=== PATIENT | male | born 1960 | race Caucasian/White ===

== ENCOUNTER 2017-04-25 16:54 | Emergency (ER) | payer BC, OTHER ==
--- NOTE | 2017-04-25 17:30 | UC ---
Knee Pain HPI - HPI Summary HPI Summary: 56 male presents with complaints of left knee pain and clicking that began on after an injury while at work. States he was coming down a ladder on a piece of equipment when he slipped and landed on uneven pavement. States his knee hyper extended and twisted. Patient states since he has had pain when walking or bearing weight for long periods of time and also feels/hears clicking when twisting or sudden movement. Patient has not taken any medications. Denies any other injuries, did not hit his head. Denies numbness tingling. Has full ROM. Denies PMHx. - History of Current Complaint Chief Complaint: UCLowerExtremity Stated Complaint: LEFT KNEE INJURY (WC) Time Seen by Provider: 04/25/17 17:26 Hx Obtained From: Patient Onset/Duration: Sudden Onset, Lasting Weeks, Still Present, Worse Since Severity Initially: Mild Severity Currently: Moderate Location Of Injury: left knee Pain Intensity: 4 - 8/10 when at worst Pain Scale Used: 0-10 Numeric Character: Aching Aggravating Factor(s): Movement, Weight Bearing - walking down a hill, Prolonged Standing Alleviating Factor(s): Rest, Position Associated Signs And Symptoms: Positive: Negative Able to Bear Weight: Yes - Allergies/Home Medications Allergies/Adverse Reactions: Allergies Allergy/AdvReac Type Severity Reaction Status Date / Time No Known Allergies Allergy Verified 04/25/17 17:22 Home Medications: Home Medications Allergy Medication 1 tab DAILY PRN 04/25/17 [History Confirmed 04/25/17] Pravastatin (NF) [Pravachol (NF)] 10 mg PO BEDTIME 04/25/17 [History Confirmed 04/25/17] PMH/Surg Hx/FS Hx/Imm Hx - Additional Past Medical History Additional PMH: Denies diabetes, HTN and asthma. Denies PMHx. - Surgical History Surgical History: Yes Surgery Procedure, Year, and Place: Tumor left ankle-benign - Family History Known Family History: Positive: None - Social History Alcohol Use: Daily Alcohol Amount: 3 cans a day Substance Use Type: None Smoking Status (MU): Never Smoked Tobacco Review of Systems Constitutional: Negative Skin: Negative Respiratory: Negative Cardiovascular: Negative Motor: Negative Musculoskeletal: Arthralgia, Myalgia - left knee Neurological: Negative All Other Systems Reviewed And Are Negative: Yes Physical Exam Triage Information Reviewed: Yes Appearance: Well-Appearing, No Pain Distress, Well-Nourished Vital Signs: Initial Vital Signs Temp 99.1 F 04/25/17 17:08 Pulse 66 04/25/17 17:08 Resp 16 04/25/17 17:08 BP 133/90 04/25/17 17:08 Pulse Ox 96 04/25/17 17:08 Vital Signs Reviewed: Yes Eyes: Positive: Conjunctiva Clear Neck: Positive: Supple, Nontender Respiratory: Positive: Chest non-tender, Lungs clear, Normal breath sounds, No respiratory distress, No accessory muscle use Cardiovascular: Positive: RRR, No Murmur, Pulses Normal - 2+ upper and lower extremities b/l Musculoskeletal: Positive: Strength Intact, ROM Intact, No Edema, Other: - no pain on palpation Neurological: Positive: Alert - sensation intact and equal b/l, Muscle Tone Normal, Fatigued Psychological Exam: Normal Skin Exam: Normal Skin: Positive: Other - no ecchymosis, edema, crepitus, step off or obvious deformity noted. Diagnostics - Radiology left knee Xray Interpretation: No Acute Changes - MINOR PATELLOFEMORAL OSTEOARTHRITIS. Radiology Interpretation Completed By: Radiologist Knee Pain Course/Dx - Course Course Of Treatment: x-ray obtained and negative for acute changes/injury. advised to take NSAIDs, rest, ice and refrain from strenuous physical activity. Follow up with PCP or ortho for further imaging and evaluation, MRI needed if symptoms persis/continue. OTC knee brace for extra support. Aware of worsening signs and symptoms. - Differential Dx/Diagnosis Differential Diagnosis/HQI/PQRI: Contusion, Dislocation, Fracture (Closed), Sprain, Strain, Tendonitis, Other Provider Diagnoses: left knee pain, injury Discharge - Discharge Plan Condition: Stable Disposition: HOME Patient Education Materials: Knee Pain (ED) Referrals: No Primary Care Phys,NOPCP [Primary Care Provider] - Gabino Jay MD [Medical Doctor] - Additional Instructions: Take NSAIDs such as ibuprofen or aleve for pain as needed. Take with food. Follow up and make an appointment with PCP or orthopedics for further imaging/ work up and imaging. Ice/Heat and rest. Return if symptoms worsen or new symptoms develop.
--- NOTE | 2017-04-25 17:49 | RAD ---
INDICATION: Left knee pain for one month. COMPARISON: None TECHNIQUE: AP, lateral, tunnel, and sunrise views were obtained. FINDINGS: There are no acute osseous findings. There is mild patellofemoral osteoarthritis. The medial and lateral joint spaces are preserved. There is no joint effusion.. IMPRESSION: MINOR PATELLOFEMORAL OSTEOARTHRITIS.
[2017-04-25 18:09] VITALS: BP 133/90
== END 2017-04-25 18:10 | disposition home or self-care (01) ==
LOC: UCCORT 16:54
DX: S89.92XA Unspecified injury of left lower leg, initial encounter (principal); X50.1XXA Overexertion from prolonged static or awkward postures, initial encounter; Y93.89 Activity, other specified; Y92.9 Unspecified place or not applicable; Y99.0 Civilian activity done for income or pay; M17.12 Unilateral primary osteoarthritis, left knee
CPT/HCPCS: 99202; G0463

== ENCOUNTER 2017-10-09 17:44 | Emergency (ER) | payer OTHER ==
[2017-10-09 17:56] VITALS: BP 141/91
--- NOTE | 2017-10-09 18:19 | UC ---
General HPI - HPI Summary HPI Summary: REMOVED TICK FROM LEFT SHOULDER TODAY, TICK BROUGHT IN IN A ZIPLOCK BAG. HAD BEEN THERE FOR TWO DAYS. NO FEVER NO JOINT PAIN. - History of Current Complaint Chief Complaint: TADEOkin Stated Complaint: TICK Time Seen by Provider: 10/09/17 17:52 Hx Obtained From: Patient Onset/Duration: Gradual Onset, Lasting Days Onset Severity: Mild Current Severity: None Pain Intensity: 0 Associated Signs & Symptoms: Positive: Other - TICK BITE LEFT SHOUDLER. Negative: Fever - Allergy/Home Medications Allergies/Adverse Reactions: Allergies Allergy/AdvReac Type Severity Reaction Status Date / Time No Known Allergies Allergy Verified 10/09/17 17:55 Home Medications: Home Medications Aspirin EC Low Dose* [Ecotrin EC Low Dose 81 MG*] 81 mg PO DAILY 10/09/17 [ History Confirmed 10/09/17] PMH/Surg Hx/FS Hx/Imm Hx Previously Healthy: Yes - Surgical History Surgical History: Yes Surgery Procedure, Year, and Place: Tumor left ankle-benign - Family History Known Family History: Positive: None - Social History Occupation: Employed Full-time Lives: With Family Alcohol Use: Daily Alcohol Amount: 3 cans a day Substance Use Type: None Smoking Status (MU): Never Smoked Tobacco Review of Systems Constitutional: Negative Skin: Other - TICK BITE LEFT SHOUDLER Eyes: Negative ENT: Negative Respiratory: Negative Cardiovascular: Negative Gastrointestinal: Negative Genitourinary: Negative Motor: Negative Neurovascular: Negative Musculoskeletal: Negative Neurological: Negative Psychological: Negative Is Patient Immunocompromised?: No All Other Systems Reviewed And Are Negative: Yes Physical Exam Triage Information Reviewed: Yes Appearance: Well-Appearing, No Pain Distress, Well-Nourished Vital Signs: Initial Vital Signs Temp 98 F 10/09/17 17:51 Pulse 75 10/09/17 17:51 Resp 16 10/09/17 17:51 BP 141/91 10/09/17 17:51 Pulse Ox 100 10/09/17 17:51 Vital Signs Reviewed: Yes Eye Exam: Normal ENT Exam: Normal ENT: Positive: Normal ENT inspection Dental Exam: Normal Neck exam: Normal Neck: Positive: Supple, Nontender, No Lymphadenopathy Respiratory Exam: Normal Respiratory: Positive: Chest non-tender, Lungs clear, Normal breath sounds, No respiratory distress Cardiovascular Exam: Normal Cardiovascular: Positive: RRR, No Murmur, Pulses Normal Abdominal Exam: Normal Musculoskeletal Exam: Normal Neurological Exam: Normal Psychological Exam: Normal Skin: Positive: Other - LEFT SHOULDER TICK BITE Course/Dx - Differential Dx - Multi-Symptom Differential Diagnoses: Metabolic Abnormality Provider Diagnoses: TICK BITE PROPHYLAXIS Discharge - Discharge Plan Condition: Stable Disposition: HOME Prescriptions: DOXYcycline CAP(*) [DOXYcycline 100MG CAP(*)] 200 mg PO ONCE #2 cap Patient Education Materials: Tick Bite (ED) Referrals: Danny Elder DO [Primary Care Provider] -
== END 2017-10-09 18:03 | disposition home or self-care (01) ==
LOC: UCCORT 17:44
DX: S40.262A Insect bite (nonvenomous) of left shoulder, initial encounter (principal); W57.XXXA Bitten or stung by nonvenomous insect and other nonvenomous arthropods, initial encounter; Y93.9 Activity, unspecified; Y92.9 Unspecified place or not applicable; Z79.82 Long term (current) use of aspirin
CPT/HCPCS: 99212; G0463

== ENCOUNTER 2018-08-29 11:02 | Emergency (ER) | payer BC, OTHER ==
[2018-08-29 11:44] VITALS: BP 128/77
--- NOTE | 2018-08-29 12:20 | UC ---
General HPI - HPI Summary HPI Summary: pt found a tick on his R upper arm this am. duration of bite not known. no fever, rash or joint pains. - History of Current Complaint Chief Complaint: Laure Stated Complaint: TICK BITE Time Seen by Provider: 08/29/18 12:13 Hx Obtained From: Patient Pain Intensity: 0 Associated Signs & Symptoms: Negative: Fever - Allergy/Home Medications Allergies/Adverse Reactions: Allergies Allergy/AdvReac Type Severity Reaction Status Date / Time No Known Allergies Allergy Verified 08/29/18 11:41 Home Medications: Home Medications Omeprazole CAP* [Prilosec CAP* 20 MG] 20 mg PO DAILY 08/29/18 [History Confirmed 08/29/18] PMH/Surg Hx/FS Hx/Imm Hx Previously Healthy: Yes - Surgical History Surgical History: Yes Surgery Procedure, Year, and Place: Tumor left ankle-benign - Family History Known Family History: Positive: None - Social History Occupation: Employed Full-time Lives: With Family Alcohol Use: Weekly Alcohol Amount: 3 cans 2-3 times weekly Substance Use Type: None Smoking Status (MU): Never Smoked Tobacco - Immunization History Vaccination Up to Date: Yes Review of Systems Constitutional: Negative Skin: Negative Eyes: Negative ENT: Negative Respiratory: Negative Cardiovascular: Negative Gastrointestinal: Negative Genitourinary: Negative Motor: Negative Neurovascular: Negative Musculoskeletal: Negative Neurological: Negative Psychological: Negative Is Patient Immunocompromised?: No All Other Systems Reviewed And Are Negative: Yes Physical Exam Triage Information Reviewed: Yes Appearance: Well-Appearing Vital Signs: Initial Vital Signs Temp 98.8 F 08/29/18 11:42 Pulse 75 08/29/18 11:42 Resp 16 08/29/18 11:42 BP 128/77 08/29/18 11:42 Pulse Ox 98 08/29/18 11:42 Vital Signs Reviewed: Yes Eyes: Positive: Conjunctiva Clear ENT: Positive: Normal ENT inspection Neck: Positive: Supple, Nontender, No Lymphadenopathy Respiratory: Positive: Lungs clear, Normal breath sounds Cardiovascular: Positive: RRR, No Murmur Abdomen Description: Positive: Nontender, No Organomegaly, Soft Bowel Sounds: Positive: Present Musculoskeletal: Positive: ROM Intact Neurological: Positive: Alert Psychological: Positive: Age Appropriate Behavior Skin Exam: Normal, Other - abrasion with tiny brusie RUE at tick removal site. Course/Dx - Differential Dx - Multi-Symptom Provider Diagnoses: Tick bite RUE Discharge - Sign-Out/Discharge Documenting (check all that apply): Patient Departure All imaging exams completed and their final reports reviewed: No Studies - Discharge Plan Condition: Stable Disposition: HOME Prescriptions: DOXYcycline CAP(*) [DOXYcycline 100MG CAP(*)] 200 mg PO ONCE #1 cap Patient Education Materials: Tick Bite (ED) Referrals: Danny Elder DO [Primary Care Provider] - If Needed - Billing Disposition and Condition Condition: STABLE Disposition: Home
== END 2018-08-29 12:24 | disposition home or self-care (01) ==
LOC: UCCORT 11:02
DX: S40.861A Insect bite (nonvenomous) of right upper arm, initial encounter (principal); W57.XXXA Bitten or stung by nonvenomous insect and other nonvenomous arthropods, initial encounter; Y92.9 Unspecified place or not applicable
CPT/HCPCS: 99212; G0463